=== PATIENT | female | born 1990 | race African-American/Black ===

== ENCOUNTER 2018-07-14 21:59 | Emergency (ER) | payer MEDICAID, OTHER ==
[~2018-07-14] VITALS: Ht 160 cm; Wt 56.6 kg
[~2018-07-14 21:59] MED LIST: ALBU2.5V13; FERR-43 PO; PREN-88 PO
[2018-07-14 22:31] VITALS: BP 132/85
[2018-07-14] MEDS ORDERED: ACETAMINOPHEN 325MG TABLET PO ONE (23:00)
[2018-07-14] MEDS ORDERED: BACITRACIN ZINC OINT UDPKT TOP ONE (23:00)
== END 2018-07-14 23:36 | disposition home or self-care (01) ==
LOC: ER 21:59
DX: S91.202A Unspecified open wound of left great toe with damage to nail, initial encounter (principal); Y93.02 Activity, running; W18.39XA Other fall on same level, initial encounter; Y92.89 Other specified places as the place of occurrence of the external cause
CPT/HCPCS: 99283